=== PATIENT | female | born 1965 | race Hispanic/Latino ===

== ENCOUNTER 2018-05-03 17:21 | Emergency (ER) | payer BC, SELFPAY ==
[2018-05-03] MEDS ORDERED: Meclizine HCl 25 MG TAB ONE ×2 (18:01→18:04)
[2018-05-03] MEDS ORDERED: Ondansetron ODT 4 MG TAB ONE (18:01)
== END 2018-05-03 18:45 | disposition home or self-care (01) ==
LOC: SCSER 17:21
DX: H81.10 Benign paroxysmal vertigo, unspecified ear (principal); R51 Headache; K21.9 Gastro-esophageal reflux disease without esophagitis; Z79.899 Other long term (current) drug therapy
CPT/HCPCS: 99283; Q0162